=== PATIENT | male | born 1975 | race Two or more races ===

== ENCOUNTER 2022-10-06 10:35 | Emergency (ER) | payer BC ==
[~2022-10-06] VITALS: Ht 172.7 cm; Wt 99.6 kg
[2022-10-06] MEDS ORDERED: NORVASC PO (10:45)
[2022-10-06 10:58] VITALS: BP 144/92
[2022-10-06 11:00] VITALS: BP 140/92
[2022-10-06 11:20] LABS: URINE BILIRUBIN - DIPSTICK NEGATIVE (NEGATIVE); URINE BLOOD DIPSTICK MODERATE (NEGATIVE); URINE COLOR YELLOW; URINE GLUCOSE - DIPSTICK NEGATIVE (NEGATIVE); URINE KETONE NEGATIVE (NEGATIVE); URINE LEUK ESTERASE NEGATIVE (NEGATIVE); URINE PROTEIN - DIPSTICK NEGATIVE (NEG-TRACE); URINE SPECIFIC GRAVITY 1.025; URINE UROBILINOGEN - DIPSTICK 0.2 E.U./dL (0.2)
[2022-10-06 11:21] LABS: URINE NITRITE - DIPSTICK NEGATIVE (Negative)
[2022-10-06 11:22] LABS: BASO% 0.5 % (0-3); EOS% 1.8 % (0-8); HEMATOCRIT 46.9 % (39.0-50.0); HEMOGLOBIN 15.8 g/dl (14.0-18.0); IMMATURE GRANULOCYTES 0.3 % (0.0-5.0); LYMPH% 40.4 % (15-41); MEAN CELL VOLUME 82.4 fL CALC (80.0-100.0); MEAN CORPUSCULAR HGB 27.8 pG CALC (26.0-32.0); MEAN CORPUSCULAR HGB CONC 33.7 g/dL CAL (32.0-36.0); MONO% 7.3 % (2-13); NEUT# 3.87 thou/uL (1.82-7.42); NEUT% 49.7 % (42-76); RED BLOOD COUNT 5.69 mill/uL (4.70-6.10); RED CELL DISTRI WIDTH 12.5 % (11.5-15.5)
[2022-10-06 11:51] LABS: ALBUMIN 5.2 g/dL (3.2-5.0); ALKALINE PHOSPHATASE 48 u/l (38-126); ANION GAP 15 (6-22 (CALC)); BILIRUBIN, TOTAL 0.6 mg/dL (0.2-1.3); BUN 16 mg/dL (9-20); BUN/CREATININE RATIO 19 (12-20 (CALC)); CARBON DIOXIDE 27 mmol/l (22-30); CHLORIDE 105 mmol/l (95-108); CREATININE 0.8 mg/dL (0.7-1.3); GFR FOR AFR.AMER. > 60 ML/MIN (>=60 (CALC)); GFR OTHER RACES > 60 ML/MIN (>=60 (CALC)); LIPASE 97 u/l (23-300); POTASSIUM 3.9 mmol/l (3.5-5.1); SGOT/AST 36 u/l (17-59); SODIUM 144 mmol/l (137-146); TOTAL PROTEIN 8.9 g/dL (6.3-8.2)
[2022-10-06] MEDS ORDERED: TAMSULOSIN0.4 MG PO (12:34)
[2022-10-06] MEDS ORDERED: TORADOL PO (12:34)
[2022-10-06 12:44] VITALS: BP 140/92
== END 2022-10-06 12:52 | disposition home or self-care (01) | DRG 694 ==
LOC: ED 10:35
PROVIDERS: Family Medicine
DX: N20.1 Calculus of ureter (principal)